=== PATIENT | female | born 1950 | race Caucasian/White ===

== ENCOUNTER → 2016-09-10 | Outpatient (CLI) | payer MEDICARE, OTHER ==
[~2016-09-10] MED LIST: ASPIRIN81 M2 PO; ASPIRINEC PO; CARAFATE1 G PO; CERTAGEN PO; CIPRO PO; EC-NAPROSYN500 MG PO; FLAGYL PO; HYDROCODON-ACE1 EAC1 PO; LIPITOR PO; LIPITOR20 MG PO; MAGNESIUM; MULTI VITAMIN1 EACH PO; NITROGYLCERIN SUBLINGUAL; NITROQUICK0.4 MG SL; NORVASC PO; PROBIOTIC1 EAC2 PO; TETRACYCLINE PO; ZOFRAN PO
--- NOTE | ~2016-09-10 | CR265 ---
[facility] A Service of [facility] & [facility] RADIOLOGY TEXT RESULTS PATIENT: JAIMIE SHETH LOCATION: [facility] : 52 UNIT #: [id number] AGE: [address]: Paramjit Milton MD SEX: F ORDER DR: [id number] [facility] [address] [place], [place] [address] [id number] O MR#: [id number] Acc #: [id number] NAME: JAIMIE SHETH. : 1950 SEX: F STUDY DATE/TIME: 09/10/2016 12:14 UNIT: [facility] ROOM: STUDY DESCRIPTION: CR Upper GI Series Wo KUB Attending Physician: Paramjit Milton Jr., M.D. Referring Physician: Paramjit Milton Jr., M.D. Ordering Physician: Paramjit Milton Jr., M.D. Primary Care Physician: Ascencion Sosa M.D. MEDICAL IMAGING REPORT This report is preliminary unless electronic signature is present EXAM Upper GI series showing very 09/10/2016 HISTORY Difficulty swallowing with sensation of food getting caught, history of stricture requiring dilatation. FINDINGS Limited esophagram was performed. 24 spot images were obtained and 1.5 minutes of fluoroscopy was utilized. There was no leak from the esophagus. There was no fixed stricture. There is a moderately large hiatal hernia, there is a relatively limited opening of the gastroesophageal junction, though this appears dynamic and again no fixed to the ureter is seen. There is no esophageal mucosal fold thickening though there was somewhat disordered peristalsis, with multiple tertiary contractions in the esophagus. IMPRESSION 1. Relatively limited opening of the gastroesophageal junction and moderate sized hiatal hernia, without fixed stricture. 2. Somewhat disordered esophageal peristalsis and there is some dilatation of the distal esophagus just above the GE junction, though to a degree that was also present on the prior esophagram of 09/11/2014. Dictated by... Moises Ramirez M.D. THIS IS AN ELECTRONICALLY VERIFIED REPORT Moises Ramirez M.D. at 09/12/2016 2:16 PM TEV/rnr [facility]. [facility] A Service of [facility] & [facility] RADIOLOGY TEXT RESULTS PATIENT: JAIMIE SHETH LOCATION: [facility] #: [id number] : 52 UNIT #: [id number] AGE: [address]: Paramjit Milton MD SEX: F ORDER DR: TD: 09/11/2016 19:43 JOB #: [id number] MEDICAL IMAGING REPORT Page 1 of 1 COPY
== END | disposition home or self-care (01) ==
LOC: CRAD 11:30
DX: R13.10 Dysphagia, unspecified (principal); K44.9 Diaphragmatic hernia without obstruction or gangrene; K22.8 Other specified diseases of esophagus
CPT/HCPCS: 74240

== ENCOUNTER → 2016-09-26 | Day surgery (SDC) | payer MEDICARE, OTHER ==
--- NOTE | ~2016-09-26 | OR ---
Unit #: [id number] #: [id number] Patient: JAIMIE SHETH [id number] [address] [place], [place] [address] [id number] O MR#: [id number] NAME: JAIMIE SHETH. ROOM: Date of Procedure: 09/26/2016 Admission Date: 09/26/2016 Surgeon: Paramjit Milton Jr., M.D. : 1950 Attending Physician: Paramjit Milton Jr., M.D. Primary Care Physician: Ascencion Sosa M.D. OPERATIVE REPORT INDICATION FOR PROCEDURE The patient is a 66-year-old white female, who underwent EGD with esophageal dilatation approximately 5 months ago. Since then, she had done well up until recently when she has developed progressive dysphagia again, indicating some recurrent esophageal stenosis. She is brought in this time for repeat upper endoscopy with dilatation. She understands the procedure including the risks, including that of perforation and bleeding, and consents. PREOPERATIVE DIAGNOSES Recurrent esophageal stenosis with dysphagia. POSTOPERATIVE DIAGNOSES Recurrent esophageal stenosis with dysphagia, noting 2+ ulcerative distal esophagitis as well as mild stenosis with small hiatal hernia with Sheldon ulcers and mild erosive gastritis as well as mild duodenitis. ANESTHESIA MAC anesthesia. PROCEDURE PERFORMED Flexible fiberoptic esophagogastroduodenoscopy with antral biopsy for Helicobacter pylori and biopsy of the distal esophagus for pathology and biopsy of the antrum for pathology. DESCRIPTION OF PROCEDURE The patient was positioned in Brambila position with left side down. After being given MAC anesthesia, the Olympus XQ scope was passed through the proximal esophagus. The entire esophagus was examined. Proximal two-thirds appeared normal. In the area of the distal esophagus, there was some ulcerations, compatible with 2+ ulcerative distal esophagitis with mild stenosis. The scope was advanced through the GE junction without difficulty in the cardia and down the fundic and antral region of the stomach, retroflexed back up to the area of the cardia. There was a small to moderate hiatal hernia with Sheldon ulcers, which had some old blood on them. These were not deep ulcerations. The stomach distended well without evidence of rigidity. The scope was then advanced down the prepyloric region. There was no evidence of any primary gastric ulcer disease. There were multiple small erosions in the prepyloric region. A biopsy was taken from the antrum for Helicobacter pylori and several biopsies were taken for pathology from the distal stomach. The scope was then advanced through the pylorus and the duodenal bulb, where there was Unit #: [id number] #: [id number] Patient: JAIMIE SHETH some mild duodenitis present without ulceration. There were some small erosions in the duodenum. The scope was then advanced down to the second portion of the duodenum, which appeared normal. The scope was slowly removed back to the area of the antrum and 18 to 20 mm balloon dilator was placed and used to slowly dilate the distal esophagus from 18 to 19 to 20 mm without evidence of any tears or perforation. There was a small amount of bleeding from the dilatation indicating reasonable dilatation. Several biopsies were taken from the distal esophagus for pathology without any further bleeding. The scope was then removed. The patient tolerated the procedure well and was discharged in satisfactory condition. Dictated by... Paramjit Milton Jr., M.Neri. ARTI/yarelis TD: 09/27/2016 02:33 JOB #: [id number] OPERATIVE REPORT Page 1 of 1 X Paramjit Milton MD X PROCEDURE OPERATIVE NOTE
== END | disposition home or self-care (01) ==
LOC: COPS 11:37
DX: K22.2 Esophageal obstruction (principal); K22.10 Ulcer of esophagus without bleeding; K44.9 Diaphragmatic hernia without obstruction or gangrene; K25.9 Gastric ulcer, unspecified as acute or chronic, without hemorrhage or perforation; K21.0 Gastro-esophageal reflux disease with esophagitis; K29.50 Unspecified chronic gastritis without bleeding; K29.80 Duodenitis without bleeding; I10 Essential (primary) hypertension; E78.5 Hyperlipidemia, unspecified; I25.118 Atherosclerotic heart disease of native coronary artery with other forms of angina pectoris
CPT/HCPCS: 87077; 88305; 88312